=== PATIENT | female | born 1995 | race Caucasian/White ===

== ENCOUNTER 2021-02-01 02:38 | Emergency (ER) | payer OTHER ==
[~2021-02-01] VITALS: Ht 160 cm; Wt 49.9 kg
[2021-02-01 02:40] VITALS: BP_SYST 133
[2021-02-01] MEDS ORDERED: PRED20TA PO ×2 (03:16→03:22)
[2021-02-01] MEDS ORDERED: DIPH25TA62 PO ×2 (03:16→03:22)
[2021-02-01] MEDS ORDERED: FAMO20TA8 PO ×2 (03:16→03:22)
[2021-02-01] MEDS ORDERED: DIPHENHYDRAMINE INJ 50 MG/ML VIAL IM ONE (03:30)
[2021-02-01] MEDS ORDERED: methylPREDNISolone SOD SUCC/PF 62.5 MG/ML VIAL IM ONE (03:30)
[2021-02-01] MEDS ORDERED: FAMOTIDINE 20 MG TABLET PO ONE (03:30)
[2021-02-01 03:33] VITALS: BP_SYST 133
== END 2021-02-01 03:33 | disposition home or self-care (01) ==
LOC: SED 02:38
DX: R22.0 Localized swelling, mass and lump, head (principal); T49.4X5A Adverse effect of keratolytics, keratoplastics, and other hair treatment drugs and preparations, initial encounter; X58.XXXA Exposure to other specified factors, initial encounter; Y92.89 Other specified places as the place of occurrence of the external cause
CPT/HCPCS: 96372; 99284; J1200; J2930